=== PATIENT | female | born 2000 | race African-American/Black ===

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

== ENCOUNTER 2020-04-04 13:25 | Emergency (ER) | payer SELFPAY ==
--- NOTE | 2020-04-04 14:43 | ER Document Report ---
ED Medical Screen (RME) - General Stated Complaint: POSSIBLE STD EXPOSURE - HPI Notes: 04/04/20 14:33 Rapid Medical Exam HPI: This is a 19-year-old female presents to the ER for possible STD exposure. says she was tested by her doctor and says she was positive for strep throat. this all occured in [place]. says her doctor sent her meds in to a pharmacy and she only got meds for strep throat and not the other. although she says the bottle only had 2 big white pills. pt does not remember the anme of meds, but it is suspicious for azithromycin 1gm. she c/o mild lower abdominal pain. says vag discharge resolved but had some vaginal bleeding the past few days that has also now stopped. Denies fever/chills, nausea vomiting, abdominal pain, flank pain, sore throat, or rectal pain. Physical Exam: GENERAL: Well-appearing, well-nourished and in no acute distress. HEAD: Atraumatic, normocephalic. ENT: Moist mucous membranes. RESP: Respirations even and unlabored CV- Regular rate. NEURO: No focal neurological deficits. Moves all extremities spontaneously and on command. My involvement in this patients care was limited to a rapid initial assessment. A comprehensive ED assessment and evaluation of the patient, analysis of test r esults, treatment, and completion of the medical decision making process will be performed by other ER providers. - Related Data Allergies/Adverse Reactions: NSAIDS (Non-Steroidal Anti-Inflamma Adverse Reaction (Mild, Verified 12/06/19 18:12) GI upset Physical Exam - Vital signs Vitals: Temp Pulse Resp BP Pulse Ox 98.7 F 91 H 20 125/61 100 04/04/20 13:41 04/04/20 13:41 04/04/20 13:41 04/04/20 13:41 04/04/20 13:41 Course - Vital Signs Vital signs: Temp Pulse Resp BP Pulse Ox 98.7 F 91 H 20 125/61 100 04/04/20 13:41 04/04/20 13:41 04/04/20 13:41 04/04/20 13:41 04/04/20 13:41
[2020-04-04] MEDS ORDERED: AZITHROMYCIN 250 MG TABLET PO ONE (14:49)
[2020-04-04] MEDS ORDERED: CEFTRIAXONE INJ 250 MG VIAL IM ONE (14:49)
--- NOTE | 2020-04-04 15:02 | ER Document Report ---
ED General - General Stated Complaint: POSSIBLE STD EXPOSURE Primary Care Provider: LUANA SZYMANSKI MD [ACTIVE STAFF] - Follow up as needed - HPI Notes: Chief Complaint: std exposure Historian: History obtained from patient HPI: This is a 19-year-old female presents to the ER for possible STD exposure. Says her boyfriend cheated on her. she had a pelvic exam by her doctor and says she was positive for chlamydia. she also had a throat culture that was positive for strep. this all occurred in [place] about 1 week ago. says her doctor sent her meds in to a pharmacy and she only got meds for strep throat and not the chlamydia. pt does not remember the name of meds, but it is suspicious for azithromycin b/c she says the bottle only had 2 large white pills in it that she did take. she c/o mild lower abdominal pain. says vag discharge resolved but had some vaginal bleeding the past few days that has also now stopped. Denies fever/chills, nausea vomiting, flank pain, sore throat, dysuria, or rectal pain. Pt says her preg test was negative as well last week. ROS: Constitutional: no fevers. HEENT: no VILLASENOR, sore throat, or vision changes. CV: no chest pain or palpitations. Resp: no cough or SOB. GI: suprapubic pain. : resolved vaginal discharge/bleeding MSK: no back pain, no joint swelling/redness. Skin: no rashes or itching. Neuro: no seizures, weakness, numbness, or confusion. Hematological: no ecchymosis or easy bleeding. Endocrine: no polyuria/polydipsia, no heat/cold intolerance. Psych: no SI/HI, AH/VH or memory loss. PMHx: Reviewed and agree as charted by RN. PSHx: Reviewed and agree as charted by RN. SOCHx: Reviewed and agree as charted by RN. FHX: No significant familial comorbid conditions directly related to patient complaint Current Medications: Reviewed and agree with the patient medications as charted by the RN. Allergies: Reviewed and agree with the listed allergies as charted by the RN Physical Exam: Vitals: Reviewed in chart as documented by RN. General: Alert and in NAD. Head: Normocephalic; atraumatic Eyes: PERRLA, Conjunctivae clear sclerae non-icteric bilat ENT: no soft palate swelling or uvular deviation Neck: trachea midline, no unilateral swelling/tenderness/lymphadenopathy CV: RRR, no M/R/G; symmetric distal pulses Resp: respirations even and unlabored, CTA bilat. GI: abd soft and nondistended. mild suprapubic discomfort. on guarding or reboudn. normal BS. no masses/HSM. no CVAT bilat MSK: FROM of all extremities. No midline CTL spine tenderness/deformity Skin: warm, moist, good turgor. no rash/lesions Neuro: Alert and oriented X 4. following CN 2-12 intact. no unilateral weakness/numbness Psych: No SI/HI or AH/VH. - pt refuses pelvic exam ED Results: Medical Decision-Making: Medical Decision-Making: Differential includes pyelonephritis, UTI, cystitis, STD, PID, BV, nephrolithiasis, ureterolithiasis, ectopic , IUP, ovarian torsion, ovarian cyst, etc. Pt is refusing pelvic exam since she had 1 last week. Pt says she does not need to urinate and was only able to void about 10ml in the specimen cup. Pt is wanting to leave and go home- she just wants medicine for chlamydia treatment. I explained risks of not obtaining wet prep, UA, urine preg test including worsening infection, missed STD infection, , ectopic , PID, trichomniasis and this could lead to sepsis/surgery//loss of fertility/ect. PT verbalized understanding but continues to only want STD treatment an no further evaluation or workup. I will give her rocephin 250mg IM, azithro 1gm PO. she will dirnk po fluids while awaiting medications and continue to try to urinate. Also told pt she may return at any time to complete her workup. pcp f/u this week. return factors discussed. - Related Data Allergies/Adverse Reactions: NSAIDS (Non-Steroidal Anti-Inflamma Adverse Reaction (Mild, Verified 12/06/19 18:12) GI upset Past Medical History - Social History Smoking Status: Unknown if Ever Smoked Family History: Reviewed & Not Pertinent Physical Exam - Vital signs Vitals: Temp Pulse Resp BP Pulse Ox 98.7 F 91 H 20 125/61 100 04/04/20 13:41 04/04/20 13:41 04/04/20 13:41 04/04/20 13:41 04/04/20 13:41 Course - Vital Signs Vital signs: Temp Pulse Resp BP Pulse Ox 98.7 F 91 H 20 125/61 100 04/04/20 13:41 04/04/20 13:41 04/04/20 13:41 04/04/20 13:41 04/04/20 13:41 - Laboratory Results Critical Laboratory Results Reviewed: No Critical Results - Radiology Results Critical Radiology Results Reviewed: No Critical Results Discharge - Discharge Clinical Impression: STD exposure Condition: Stable Disposition: HOME, SELF-CARE Instructions: Chlamydia ([facility]) Additional Instructions: Abstain from sexual contact for 10 days plus resolved symptoms. Always practice safe sex w/ condoms. We will call you if your tests are positive. Inform all sexual partners to get tested and/or treated. follow up with your doctor in 1 week for a recheck. Return to the ER if your condition worsens. Referrals: LUANA SZYMANSKI MD [ACTIVE STAFF] - Follow up as needed
[2020-04-04] MEDS ORDERED: LIDOCAINE 1% INJ (10 MG/ML) 10 ML MDV ONE (15:32)
[2020-04-04 15:53] LABS: APPEARANCE,URINE CLOUDY; BILIRUBIN,URINE NEGATIVE (NEGATIVE); COLOR,URINE YELLOW; GLUCOSE, URINE NEGATIVE (NEGATIVE); KETONES,URINE NEGATIVE (NEGATIVE); LEUKOCYTE ESTERASE,URINE LARGE (NEGATIVE); NITRITE,URINE NEGATIVE (NEGATIVE); PROTEIN,URINE 30 mg/dL (NEGATIVE); URINE SPECIFIC GRAVITY 1.028; UROBILINOGEN,URINE NEGATIVE mg/dL (<2.0)
[2020-04-04 16:00] VITALS: BP 124/64
[2020-04-04 17:26] LABS: CHLAM PCR DETECTED (NOT DETECT)
== END 2020-04-04 16:00 | disposition home or self-care (01) ==
LOC: ER 13:25
DX: Z20.2 Contact with and (suspected) exposure to infections with a predominantly sexual mode of transmission (principal); R10.30 Lower abdominal pain, unspecified
CPT/HCPCS: 99284; 96372; 81025; 81001; 87491; 87591; J0696